=== PATIENT | male | born 1985 | race Caucasian/White ===

== ENCOUNTER 2017-02-21 16:03 | Emergency (ER) | payer OTHER, SELFPAY ==
[2017-02-21 16:10] VITALS: BP 118/87; PULSE 53; RESP 16; TEMP 36.9; O2SAT 97; BMI 35.7
[2017-02-21 18:16] VITALS: BP 147/70; PULSE 62; RESP 20; TEMP 36.6; O2SAT 98; BMI 35.7
--- NOTE | 2017-02-21 18:39 | HMH.EDUTC ---
[facility] [place] Disposition Clinical Impression: Sciatica Qualifiers: Laterality: bilateral Qualified Code(s): M54.31 - Sciatica, right side Disposition: Home, Self-Care Condition on Discharge: Good Instructions: Sciatica, DI for Sciatica Additional Instructions: Take medication as prescribed FOllow up with family doctor Return if needed DO stretches as advised in [facility] today Referrals: Franny Tolbert MD [Primary Care Provider] - Time of Disposition: 19:43 Medical Decision Making Vital Signs: 02/21/17 16:10 02/21/17 18:16 Temperature 98.4 F 97.9 F Temperature Source Oral Temporal Artery Scan Pulse Rate [Left Brachial] 53 L 62 Respiratory Rate 16 20 Blood Pressure [Left Arm] 118/87 147/70 Blood Pressure Mean [Left Arm] 97 95 Blood Pressure Source [Left Arm] Automatic Cuff Automatic Cuff Blood Pressure Position [Left Arm] Sitting Sitting 02 Sat by Pulse Oximetry 97 98 Oxygen Delivery Method Room Air Room Air Orders (Tests/Meds): ED MEDICATIONS Discontinued Medications Generic Name Dose Route Start Last Admin Trade Name Elkin PRN Reason Stop Dose Admin Ketorolac Tromethamine 60 mg 02/21/17 18:50 02/21/17 19:27 Toradol 60mg/2ml Vial IM 02/21/17 18:51 60 mg ONCE ONE Administration Methylprednisolone Sodium Succinate 125 mg 02/21/17 18:50 02/21/17 19:27 Solu-Medrol 125mg/2ml Vial IM 02/21/17 18:51 125 mg ONCE ONE Administration - Yousuf Inquiry Pt receiving controlled substance: No Yousuf was queried for this patient: No [facility] [place] HPI - General Chief complaint: Urgent Treatment Center Stated complaint: back pain -no known accident Mode of Arrival: Ambulatory Source of Information: Patient Limitations: No Limitations Description of Symptoms (Recalled from Triage Doc. by RN): LOW BACK PAIN DOWN LEFT LEG X3 WKS HEENT Symptoms (Recalled from RN notes): No Resp Symptoms (Recalled from RN notes): No Skin Symptoms (Recalled from RN notes): No MS Symptoms (Recalled from RN notes): No Functional Status (Recalled from RN notes): N - History of Present Illness Provider Complaint: Patient state that he has been having pain in his lower back area that has been radiating down his buttock area and into leg State that felt like several days ago he had a muscle spasm State that now he is having a throbbing pain that radiates down from lower back into leg - Related Data Allergies Allergy/AdvReac Type Severity Reaction Status Date / Time NO KNOWN ALLERGIES Allergy Uncoded 02/06/17 14:45 - Worker's Comp Is this a Worker's Comp case?: No [facility] History - *Social History Alcohol Intake: never - Psychiatric History Expresses thoughts of harming self/others: None Suicide Plan Description: No Plan - Musculoskeletal Reports back pain, Reports other Comments: Describes as throbbing pain that radiates from lower back down left side of buttock area in left leg Pain worsened with movement of leg Physical Exam - General General appearance: alert, in no apparent distress - ENT ENT exam: Present: normal exam, normal oropharynx, mucous membranes moist, TM's normal bilaterally, normal external ear exam - Respiratory Respiratory exam: Present: normal lung sounds bilaterally. Absent: respiratory distress - Cardiovascular Cardiovascular exam: Present: regular rate, normal rhythm. Absent: JVD - Back Exam Back exam: Present: sciatic notch tenderness (R), sciatic notch tenderness (L) Comment: Denies injury, state that having throbbing like pain in lower back that radiates down buttock into legs, denies bowel or bladder involvement, denies tingling in legs good pulses noted - Neurological Exam Neurological exam: Present: alert, oriented X3 - Other Other exam information: Patient was given injection or Tordol and Solu medrol state that feels much better now and pain now decreased
--- NOTE | 2017-02-21 18:44 | ED_ITS ---
[facility] [place] Clinical Impression: Sciatica Qualifiers: Laterality: bilateral Qualified Code(s): M54.31 - Sciatica, right side Disposition: Home, Self-Care Condition on Discharge: Good Instructions: Sciatica, DI for Sciatica Additional Instructions: Take medication as prescribed FOllow up with family doctor Return if needed DO stretches as advised in [facility] today Referrals: Franny Tolbert MD [Primary Care Provider] - Time of Disposition: 19:43 Medical Decision Making Vital Signs: 02/21/17 16:10 02/21/17 18:16 Temperature 98.4 F 97.9 F Temperature Source Oral Temporal Artery Scan Pulse Rate [Left Brachial] 53 L 62 Respiratory Rate 16 20 Blood Pressure [Left Arm] 118/87 147/70 Blood Pressure Mean [Left Arm] 97 95 Blood Pressure Source [Left Arm] Automatic Cuff Automatic Cuff Blood Pressure Position [Left Arm] Sitting Sitting 02 Sat by Pulse Oximetry 97 98 Oxygen Delivery Method Room Air Room Air Orders (Tests/Meds): ED MEDICATIONS Discontinued Medications Generic Name Dose Route Start Last Admin Trade Name Elkin PRN Reason Stop Dose Admin Ketorolac Tromethamine 60 mg 02/21/17 18:50 02/21/17 19:27 Toradol 60mg/2ml Vial IM 02/21/17 18:51 60 mg ONCE ONE Administration Methylprednisolone Sodium Succinate 125 mg 02/21/17 18:50 02/21/17 19:27 Solu-Medrol 125mg/2ml Vial IM 02/21/17 18:51 125 mg ONCE ONE Administration - Yousuf Inquiry Pt receiving controlled substance: No Oyusuf was queried for this patient: No [facility] [place] - General Chief complaint: Urgent Treatment Center Stated complaint: back pain -no known accident Mode of Arrival: Ambulatory Source of Information: Patient Limitations: No Limitations Description of Symptoms (Recalled from Triage Doc. by RN): LOW BACK PAIN DOWN LEFT LEG X3 WKS HEENT Symptoms (Recalled from RN notes): No Resp Symptoms (Recalled from RN notes): No Skin Symptoms (Recalled from RN notes): No MS Symptoms (Recalled from RN notes): No Functional Status (Recalled from RN notes): N - History of Present Illness Provider Complaint: Patient state that he has been having pain in his lower back area that has been radiating down his buttock area and into leg State that felt like several days ago he had a muscle spasm State that now he is having a throbbing pain that radiates down from lower back into leg - Related Data Allergies Allergy/AdvReac Type Severity Reaction Status Date / Time NO KNOWN ALLERGIES Allergy Uncoded 02/06/17 14:45 - Worker's Comp Is this a Worker's Comp case?: No [facility] History - *Social History Alcohol Intake: never - Psychiatric History Expresses thoughts of harming self/others: None Suicide Plan Description: No Plan - Musculoskeletal Reports back pain, Reports other Comments: Describes as throbbing pain that radiates from lower back down left side of buttock area in left leg Pain worsened with movement of leg Physical Exam - General General appearance: alert, in no apparent distress - ENT ENT exam: Present: normal exam, normal oropharynx, mucous membranes moist, TM's normal bilaterally, normal external ear exam - Respiratory Respiratory exam: Present: normal lung sounds bilaterally. Absent: respiratory distress - Cardiovascular
== END 2017-02-21 19:45 | disposition home or self-care (01) ==
PROVIDERS: Emergency Provider Nurse Practitioner; Family Provider Nurse Practitioner; PCP Family Medicine
DX: M54.31 Sciatica, right side (principal)
CPT/HCPCS: 96372; 99283; 99291

== ENCOUNTER 2022-01-10 06:07 | Emergency (ER) | payer OTHER, SELFPAY ==
[2022-01-10 06:08] VITALS: BP 138/86; PULSE 53; RESP 18; TEMP 36.6; O2SAT 100; BMI 35.7
--- NOTE | 2022-01-10 06:29 | CT_ITS ---
PROCEDURE INFORMATION: Exam: CT Abdomen And Pelvis Without Contrast Exam date and time: 01/10/2022 6:41 AM Age: 36 years old Clinical indication: Abdominal pain; Localized; Left lower quadrant (llq); Patient HX: Sudden onset llq pain with nausea TECHNIQUE: Imaging protocol: Computed tomography of the abdomen and pelvis without contrast. Radiation optimization: All CT scans at this facility use at least one of these dose optimization techniques: automated exposure control; mA and/or kV adjustment per patient size (includes targeted exams where dose is matched to clinical indication); or iterative reconstruction. COMPARISON: No relevant prior studies available. FINDINGS: Liver: Normal. No mass. Gallbladder and bile ducts: Normal. No calcified stones. No ductal dilation. Pancreas: Normal. No ductal dilation. Spleen: Normal. No splenomegaly. Adrenal glands: Normal. No mass. Kidneys and ureters: Slight left perinephric stranding and hydronephrosis secondary to a 3 mm calculus located in the left ureter approximately 1 cm proximal to the ureterovesical junction. Stomach and bowel: Unremarkable. No obstruction. No mucosal thickening. Appendix: The appendix is seen and is normal in appearance. Intraperitoneal space: Unremarkable. No free air. No significant fluid collection. Vasculature: Unremarkable. No abdominal aortic aneurysm. Lymph nodes: Unremarkable. No enlarged lymph nodes. Urinary bladder: Unremarkable as visualized. Reproductive: Unremarkable as visualized. Bones/joints: Unremarkable. No acute fracture. Soft tissues: Unremarkable. IMPRESSION: Slight left perinephric stranding and hydronephrosis secondary to a 3 mm calculus located in the left ureter approximately 1 cm proximal to the ureterovesical junction.
[2022-01-10 06:38] LABS: Basophils # 0.1 K/mm3 (0-0.2); Basophils % 1.1 % (0.1-2.0); Eosinophils # 0.1 K/mm3 (0.0-0.4); Eosinophils % 1.7 % (0.1-12.0); Hematocrit 49.8 % (42.0-52.0); Hemoglobin 16.3 g/dL (14.1-18.0); Lymphocytes # 1.9 K/mm3 (0.7-4.5); Lymphocytes % 28.4 % (10-50); Mean Corpuscular HGB Conc 32.8 g/dL (31.8-35.4); Mean Corpuscular Hemoglobin 29.3 pg (27.0-31.2); Mean Corpuscular Volume 89.4 fl (80-94); Monocytes # 0.5 K/mm3 (0.1-1.0); Monocytes % 7.7 % (1.7-9.3); Platelet Count 351 K/mm3 (142-424); Red Blood Count 5.57 M/mm3 (4.60-6.20); Red Cell Distribution Width 13.3 % (11.5-17.5); White Blood Count 6.5 K/mm3 (4.8-10.8)
[2022-01-10 06:56] LABS: Alanine Aminotransferase 27 U/L (12-78); Albumin Level 4.8 g/dl (3.5-5.0); Albumin/Globulin Ratio 1.6 (1.1-1.8); Alkaline Phosphatase 73 U/L (38-126); Amylase 84 U/L (30-110); Anion Gap 15.6 mEq/L (5-15); Aspartate Amino Transferase 28 U/L (17-59); Bilirubin,Total 0.7 mg/dl (0.2-1.3); Blood Urea Nitrogen 23 mg/dl (9-20); Calcium 9.7 mg/dl (8.4-10.2); Carbon Dioxide 29 mmol/L (22.0-30.0); Chloride 102 mmol/L (98-107); Creatinine Clearance Estimated 140 mL/min (50-200); Estimated Glomerular Filt Rate 76 ml/min (>60); GFR (African American) 92 ML/MIN (>60); Glucose 118 mg/dl (74-100); Lipase 86 U/L (23-300); Potassium 4.6 mmoL/L (3.5-5.1); Sodium 142 mmol/L (136-145); Total Protein,Serum 7.8 g/dl (6.3-8.2)
--- NOTE | 2022-01-10 07:15 | HMH.EDABDPAI ---
Discharge Plan Disposition Patient Disposition: Home, Self-Care Prescriptions Prescriptions: New tamsulosin [Flomax] 0.4 mg capsule 0.4 mg PO DAILY Qty: 10 0RF No Action ibuprofen 800 mg tablet 800 mg PO BID Qty: 60 1RF Referrals Follow up/Referrals: Franny Tolbert MD [Primary Care Provider] - See instructions Clinical Impressions Clinical Impression: Renal colic on left side Instructions Patient Instructions: DI for Kidney Stones Discharge ED Provider: Peyman Leslie Abdominal Pain HPI General Chief Complaint: Abdominal Pain Stated Complaint: Left side pain Time Seen by Provider: 01/10/22 07:15 Mode of Arrival: Ambulatory Source of Information: Patient, Spouse and Medical Record Limitations: No Limitations Description of Symptoms (Recalled from ER Triage Doc. by RN): pt states when to start car and when back in the house with sudden onset of LLQ pain and nauesous History of Present Illness HPI narrative: acute lt flank pain this am MD complaint: flank pain Onset (ago): hour(s) Consistency: constant Severity: moderate Radiation: L flank Associated symptoms: denies other symptoms Related Data Previous Rx's Medication Instructions Recorded ibuprofen 800 mg tablet 800 mg PO BID pain, mild #60 tabs 09/29/21 tamsulosin 0.4 mg capsule (Flomax) 0.4 mg PO DAILY #10 caps 01/10/22 Allergies Allergy/AdvReac Type Severity Reaction Status Date / Time NO KNOWN ALLERGIES Allergy Uncoded 05/03/18 18:29 PFSH PFS Social History (Updated 10/19/21 @ 16:33 by Yusef Duckworth DPM) Smoking Status: Never smoker alcohol intake: never substance use type: denies use current occupational status: employed Travel in the last 8 weeks: None household members: family housing: house ROS Obtained: Yes All systems reviewed & no additional complaints except as documented Physical Exam General General appearance: alert Head Head exam: normocephalic Eye Eye exam: Present PERRL and EOMI ENT ENT exam: Present mucous membranes moist Neck Neck exam: Present trachea midline Respiratory Respiratory exam: Absent respiratory distress Cardiovascular Cardiovascular exam: Present regular rate Abdominal Exam Abdominal exam: Present soft Extremities Exam Extremities exam: Present full ROM Back Exam Back exam: Absent CVA tenderness (L) Neurological Exam Neurological exam: Present alert, oriented X3 and CN II-XII intact Psychiatric Psychiatric exam: Present normal affect Skin Skin exam: Absent rash Medical Decision Making Medical Records Medical records reviewed: Yes I reviewed the patient's medical records. Yousuf Inquiry Pt receiving controlled substance: No Vital Signs: 01/10/22 06:08 01/10/22 07:27 Temperature 97.9 F Temperature Source Oral Pulse Rate 60 Pulse Rate [Right] 53 L Respiratory Rate 18 18 Blood Pressure 125/66 Blood Pressure [Right Arm] 138/86 Blood Pressure Mean 85 Blood Pressure Mean [Right Arm] 103 02 Sat by Pulse Oximetry 100 99 Oxygen Delivery Method Room Air Lab Data Lab results reviewed: Yes I reviewed the patient's lab results. Lab Results 01/10/22 06:21: WBC 6.5, RBC 5.57, Hgb 16.3, Hct 49.8, MCV 89.4, MCH 29.3, MCHC 32.8, RDW 13.3, Plt Count 351, MPV 9.0, Neut % (Auto) 61.0, Lymph % (Auto) 28.4, Harlan % (Auto) 7.7, Eos % (Auto) 1.7, Baso % (Auto) 1.1, Neut # (Auto) 4.0, Lymph # (Auto) 1.9, Harlan # (Auto) 0.5, Eos # (Auto) 0.1, Baso # (Auto) 0.1 01/10/22 06:21: Sodium 142, Potassium 4.6, Chloride 102, Carbon Dioxide 29, Anion Gap 15.6 H, BUN 23 H, Creatinine 1.10, Estimated Creat Clear 140, Estimated GFR 76, Est GFR ( Amer) 92, Glucose 118 H, Calcium 9.7, Total Bilirubin 0.7, AST 28, ALT 27, Alkaline Phosphatase 73, Total Protein 7.8, Albumin 4.8, Globulin 3.0, Albumin/Globulin Ratio 1.6, Amylase 84, Lipase 86 01/10/22 07:23: Urine Color Yellow, Urine Appearance Clear, Urine pH 6.0, Ur Specific [place] >= 1.030, Urine Protein Negative, Uri
[2022-01-10 07:27] VITALS: BP 125/66; PULSE 60; RESP 18; O2SAT 99
[2022-01-10 07:28] LABS: Microscopic, Urine URINE MICROSCOPIC (MICROSCOPIC)
[2022-01-10 07:29] LABS: Appearance,Urine CLEAR (Clear); Bilirubin,Urine Negative (Negative); Blood, Urine Negative (Negative); Color,Urine YELLOW (Yellow); Glucose,Urine (UA) Negative (Negative); Ketones,Urine Negative (Negative); Leukocyte Esterase,Urine Negative (Negative); Nitrate,Urine Negative (Negative); Protein,Urine Negative (Negative); Specific Gravity, Urine >= 1.030 (1.005-1.030); Urobilinogen,Urine 0.2 EU/dl (0.2)
--- NOTE | 2022-01-10 07:33 | PC.NURSE ---
Recieved report from KaleyRN Went in to check on pt, advised he was still having some pain. MEdicated per APR and pt was able to provide urine sample. No other needs at this time.
[2022-01-10 07:40] LABS: Bacteria,Urine Trace /lpf; Mucus,Urine Trace /lpf; Squamous Epithelial Cell,Urine Occasional #/hpf (0-5); WBC,Urine Occasional #/hpf (0-3)
[2022-01-10 08:24] VITALS: BP 126/75; PULSE 65; RESP 16; TEMP 36.8; O2SAT 99
== END 2022-01-10 08:27 | disposition home or self-care (01) ==
PROVIDERS: Emergency Provider Emergency Medicine; PCP Family Medicine
DX: R10.32 Left lower quadrant pain (principal); Z79.1 Long term (current) use of non-steroidal anti-inflammatories (NSAID)
CPT/HCPCS: 74176; 80053; 81001; 82150; 83690; 85025; 96361; 96374; 96375; 96376; 99285; J2405

== ENCOUNTER 2023-12-03 10:30 | Outpatient (CLI) | payer BC, SELFPAY ==
[2023-12-03 18:46] LABS: Basophils # 0.1 K/mm3 (0-0.2); Basophils % 0.8 % (0.1-2.0); Eosinophils # 0.1 K/mm3 (0.0-0.4); Eosinophils % 1.7 % (0.1-12.0); Hematocrit 41.2 % (42.0-52.0); Lymphocytes # 1.8 K/mm3 (0.7-4.5); Mean Corpuscular HGB Conc 38.9 g/dL (31.8-35.4); Mean Corpuscular Hemoglobin 34.1 pg (27.0-31.2); Mean Corpuscular Volume 87.5 fl (80-94); Mean Platelet Volume 9.8 fl (7.4-10.4); Monocytes # 0.4 K/mm3 (0.1-1.0); Monocytes % 5.9 % (1.7-9.3); Neutrophils # 3.8 K/mm3 (1.8-7.8); Neutrophils % 62.6 % (37.0-80.0); Platelet Count 283 K/mm3 (142-424); Red Blood Count 4.71 M/mm3 (4.60-6.20); White Blood Count 6.1 K/mm3 (4.8-10.8)
[2023-12-03 19:20] LABS: Albumin Level 4.7 g/dl (3.5-5.0); Chloride 108 mmol/L (98-107); Sodium 141 mmol/L (136-145)
[2023-12-03 19:21] LABS: Potassium 5.7 mmoL/L (3.5-5.1)
[2023-12-03 19:23] LABS: Alanine Aminotransferase 22 U/L (12-78); Albumin/Globulin Ratio 1.6 (1.1-1.8); Alkaline Phosphatase 67 U/L (38-126); Anion Gap 13.7 mEq/L (5-15); Aspartate Amino Transferase 25 U/L (17-59); Bilirubin,Total 0.6 mg/dl (0.2-1.3); Blood Urea Nitrogen 17 mg/dl (9-20); Carbon Dioxide 25 mmol/L (22.0-30.0); Cholesterol 172 mg/dl (140-200); Estimated Glomerular Filt Rate 94 ml/min (>60); GFR (African American) 114 ML/MIN (>60); Globulin 2.9 g/dL (1.3-3.2); Total Protein,Serum 7.6 g/dl (6.3-8.2); Triglycerides 89 mg/dl (30-150); VLDL Cholesterol 18 mg/dL (0-40)
[2023-12-03 19:24] LABS: Calcium 9.8 mg/dl (8.4-10.2); Chol/HDL Ratio 3.4 (1-3.5); Glucose 96 mg/dl (74-100); HDL Cholesterol 50 mg/dl (40-60)
[2023-12-03 19:36] LABS: Direct LDL Cholesterol 83.93 mg/dL (100-129)
[2023-12-03 19:41] LABS: 25-OH Vitamin D, Total 31.1 ng/mL (30-100)
[2023-12-03 19:58] LABS: Hemoglobin A1C 5.1 % (4.0-6.0)
[2023-12-03 21:26] LABS: HIV (1&2) Antibody Rapid NONREACTIVE (NONREACTIVE)
[2023-12-04 03:34] LABS: Thyroid Stimulating Hormone 1.24 uIU/mL (0.465-4.68)
[2023-12-05 05:27] LABS: HCV Ab Non Reactive (Non Reactive)
== END 2023-12-03 23:59 | disposition home or self-care (01) ==
LOC: LAB.DROPOF 12-04 10:30
PROVIDERS: PCP Student in an Organized Health Care Education/Training Program; Visit Provider Student in an Organized Health Care Education/Training Program
DX: E66.9 Obesity, unspecified (principal); Z11.59 Encounter for screening for other viral diseases; Z11.4 Encounter for screening for human immunodeficiency virus [HIV]; Z13.220 Encounter for screening for lipoid disorders; Z13.21 Encounter for screening for nutritional disorder; F32.5 Major depressive disorder, single episode, in full remission; Z13.29 Encounter for screening for other suspected endocrine disorder; Z13.1 Encounter for screening for diabetes mellitus
CPT/HCPCS: 80050; 80053; 80061; 82306; 83036; 84443; 85025; 86803; 87389